=== PATIENT | female | born 1970 | race Caucasian/White ===

== ENCOUNTER 2017-02-05 19:45 | Inpatient (IN) | payer OTHER ==
[~2017-02-05] VITALS: Ht 175.3 cm; Wt 81.2 kg
[~2017-02-05 19:45] MED LIST: ACCUFLORA; B COMPLEX1 CA1 PO; CARISOPRODOL350 MG PO; CILOSTAZOL100 M1 PO; COU2 PO; DIL4 PO; DIPHENOXYLATE PO; DIPHENOXYLATE/2.5 MG PO; FERROUS SULFAT325 M2 PO; FLA500 PO; GATTEX5 MG MR; IRON; JANTOVEN5 MG PO; L20 PO; LAC PO; LIVER AID; LOR PO; LYRICA50 M1 PO; MELOXICAM15 MG PO; METOCLOPRAMIDE5 M1 PO; MYL80 CH; NEU100 PO; PRENATAL PO; PRENATAL1 TA1 PO; PRI20 PO; SODIUM BICARB; SOM350 PO; XARELTO10 M1 PO; XERELTO PO; Z PO; [UNRECOGNIZED DRUG - OTHER]
[2017-02-05 21:20] LABS: BASOPHIL % 0.5 % (0-2); PLATELET COUNT 229 x10^3mcL (130-400)
[2017-02-05 21:34] LABS: ALBUMIN 4.2 g/dL (3.4-5.0); BILIRUBIN TOTAL 0.7 mg/dL (0.20-1.00); CALCIUM 8.7 mg/dL (8.5-10.1); CARBON DIOXIDE 23.6 mmol/L (21-32); CREATININE SERUM 1.6 mg/dL (0.6-1.0); TOTAL PROTEIN, SERUM 7.7 g/dL (6.4-8.2)
[2017-02-05 21:42] LABS: POTASSIUM SERUM 2.9 mmol/L (3.5-5.1)
[2017-02-05] MEDS ORDERED: METOCLOPRAMIDE H5 M1 PO (23:22)
[2017-02-05] MEDS ORDERED: CHANTIX STARTING1 MG PO (23:22)
[2017-02-05] MEDS ORDERED: CILOSTAZOL100 M1 PO (23:24)
[2017-02-05] MEDS ORDERED: GABAPENTIN100 M2 PO (23:24)
[2017-02-05] MEDS ORDERED: RANITIDINE HYD150 M2 PO (23:24)
[2017-02-05] MEDS ORDERED: FUROSEMIDE20 MG PO (23:25)
[2017-02-05] MEDS ORDERED: LYRICA75 M1 PO (23:25)
[2017-02-05] MEDS ORDERED: SPIRONOLACTONE25 MG PO (23:25)
[2017-02-05] MEDS ORDERED: MELOXICAM15 M1 PO (23:25)
[2017-02-05] MEDS ORDERED: BACLOFEN10 MG PO (23:25)
[2017-02-05] MEDS ORDERED: NORCO 10-325 T1 EACH PO (23:26)
[2017-02-06] VITALS (7 sets, daily range): BP systolic 86–118; BP diastolic 51–69
[2017-02-06 01:02] LABS: MAGNESIUM 1.6 mg/dL (1.8-2.4); PHOSPHOROUS 4.1 mg/dL (2.5-4.9)
[2017-02-06 01:03] LABS: CHOLESTEROL/HDL RATIO 2.1; T3 TOTAL 1.09 ng/mL
[2017-02-06 01:09] LABS: FREE T4 0.98 ng/dL (0.76-1.46); FREE THYROXINE INDEX 2.3 ug/dL (1.4-4.5); T4(THYROXINE) 6.6 ug/dL (4.7-13.3)
[2017-02-06 06:20] LABS: CALCIUM 7.9 mg/dL (8.5-10.1); CARBON DIOXIDE 26.1 mmol/L (21-32); CREATININE SERUM 1.3 mg/dL (0.6-1.0); MAGNESIUM 1.5 mg/dL (1.8-2.4); POTASSIUM SERUM 3.6 mmol/L (3.5-5.1)
[2017-02-06 06:32] LABS: BASOPHIL % 0.6 % (0-2); PLATELET COUNT 191 x10^3mcL (130-400); RED CELL DISTRIBUTION WIDTH 13.6 % (11.5-14.5)
[2017-02-06 06:52] LABS: microscopic required? NO
[2017-02-06 07:56] LABS: UA SPECIFIC GRAVITY <=1.005 (1.005-1.035); urine erythrocyte NEGATIVE (NEGATIVE)
[2017-02-06 08:40] LABS: AMPHETAMINE QUAL UR NONE DETECTED (NEG <=1000)
[2017-02-07 05:55] VITALS: BP 94/57
[2017-02-07 07:00] LABS: BASOPHIL % 0.5 % (0-2); PLATELET COUNT 169 x10^3mcL (130-400); RED CELL DISTRIBUTION WIDTH 14.2 % (11.5-14.5)
[2017-02-07 07:32] LABS: CARBON DIOXIDE 21.6 mmol/L (21-32); CHLORIDE SERUM 111 mmol/L (98-107); CREATININE SERUM 0.9 mg/dL (0.6-1.0); GFR1 > 60 mL/min; GLUCOSE SERUM 74 mg/dL (74-106); MAGNESIUM 2.5 mg/dL (1.8-2.4); POTASSIUM SERUM 3.9 mmol/L (3.5-5.1); SODIUM SERUM 143 mmol/L (136-145)
[2017-02-07 09:11] LABS: HCG SERUM QUALITATIVE NEGATIVE; HCG SERUM QUANTITATIVE 6 mIU/mL
[2017-02-07 09:16] VITALS: BP 94/57
[2017-02-07 09:51] VITALS: BP 100/46
[2017-02-07] MEDS ORDERED: COL100 PO (14:02)
== END 2017-02-07 15:53 | disposition home or self-care (01) | DRG 247 ==
LOC: ED 19:45 → DU 22:33 → MU 02-07 07:10
PROVIDERS: Emergency Medicine; ADMIT Family Medicine
DX: K56.60 Unspecified intestinal obstruction (principal); N17.0 Acute kidney failure with tubular necrosis; K91.2 Postsurgical malabsorption, not elsewhere classified; E87.6 Hypokalemia; D64.9 Anemia, unspecified; E83.41 Hypermagnesemia; I10 Essential (primary) hypertension; E02 Subclinical iodine-deficiency hypothyroidism; N20.0 Calculus of kidney; M19.90 Unspecified osteoarthritis, unspecified site; G89.29 Other chronic pain; M54.9 Dorsalgia, unspecified; Z85.41 Personal history of malignant neoplasm of cervix uteri; Z90.710 Acquired absence of both cervix and uterus; Z88.0 Allergy status to penicillin; Z98.84 Bariatric surgery status
CPT/HCPCS: 83880; 84439; J1170; J1885; J2270; J2405; J3475; J7030; Q0092; Q9967

== ENCOUNTER 2018-05-16 17:23 | Inpatient (IN) | payer OTHER ==
[~2018-05-16] VITALS: Ht 175.3 cm; Wt 70.0 kg
[~2018-05-16 17:23] MED LIST changes: +BACLOFEN10 MG PO; +CHANTIX STARTING1 MG PO; +COL100 PO; +FUROSEMIDE20 MG PO; +GABAPENTIN100 M2 PO; +LYRICA75 M1 PO; +MELOXICAM15 M1 PO; +METOCLOPRAMIDE H5 M1 PO; +NORCO 10-325 T1 EACH PO; +RANITIDINE HYD150 M2 PO; +SPIRONOLACTONE25 MG PO
[2018-05-16 17:28] VITALS: Ht 175.3 cm; Wt 70.0 kg
[2018-05-16 18:50] LABS: BASOPHIL % 0.9 % (0-2); PLATELET COUNT 157 x10^3mcL (130-400)
[2018-05-16 19:00] LABS: CALCIUM 8.3 mg/dL (8.5-10.1); CARBON DIOXIDE 19.4 mmol/L (21-32); CREATININE SERUM 1.2 mg/dL (0.6-1.0); POTASSIUM SERUM 3.8 mmol/L (3.5-5.1)
[2018-05-16 19:04] LABS: BILIRUBIN TOTAL 0.49 mg/dL (0.20-1.00); MAGNESIUM 1.8 mg/dL (1.8-2.4); TOTAL PROTEIN, SERUM 7.3 g/dL (6.4-8.2)
[2018-05-16 19:10] LABS: RED CELL DISTRIBUTION WIDTH 15.1 % (11.5-14.5)
[2018-05-16 22:59] LABS: PHOSPHOROUS 3.9 mg/dL (2.5-4.9)
[2018-05-16 23:00] LABS: microscopic required? NO
[2018-05-16] MEDS ORDERED: LYRICA75 M1 PO (23:07)
[2018-05-16] MEDS ORDERED: RIZATRIPTAN BEN10 MG PO (23:08)
[2018-05-16 23:22] LABS: urine erythrocyte NEGATIVE (NEGATIVE)
[2018-05-17 00:03] VITALS: BP 104/66; BP 110/64
[2018-05-17 00:17] VITALS: BP 104/66
[2018-05-17 00:21] LABS: AMPHETAMINE QUAL UR NONE DETECTED (See below)
[2018-05-17 06:03] VITALS: BP 98/59
[2018-05-17 07:12] LABS: CARBON DIOXIDE 21.7 mmol/L (21-32); CREATININE SERUM 1.2 mg/dL (0.6-1.0); MAGNESIUM 1.6 mg/dL (1.8-2.4); PHOSPHOROUS 3.4 mg/dL (2.5-4.9); POTASSIUM SERUM 3.8 mmol/L (3.5-5.1)
[2018-05-17 07:13] LABS: BASOPHIL % 0.8 % (0-2)
[2018-05-17 08:12] LABS: PLATELET COUNT 129 x10^3mcL (130-400); RED CELL DISTRIBUTION WIDTH 14.8 % (11.5-14.5)
[2018-05-17 09:24] VITALS: BP 92/50
[2018-05-17 17:27] VITALS: BP 114/68
[2018-05-17 21:13] VITALS: BP 105/63
[2018-05-18 05:12] VITALS: BP 99/53
[2018-05-18 07:27] LABS: CALCIUM 8.4 mg/dL (8.5-10.1); CARBON DIOXIDE 21.9 mmol/L (21-32); CHLORIDE SERUM 111 mmol/L (98-107); GFR1 > 60 mL/min; GLUCOSE SERUM 87 mg/dL (74-106); MAGNESIUM 1.8 mg/dL (1.8-2.4); PHOSPHOROUS 3.1 mg/dL (2.5-4.9); POTASSIUM SERUM 3.7 mmol/L (3.5-5.1); SODIUM SERUM 143 mmol/L (136-145)
[2018-05-18 08:40] LABS: BASOPHIL % 0.8 % (0-2); PLATELET COUNT 152 x10^3mcL (130-400); RED CELL DISTRIBUTION WIDTH 14.9 % (11.5-14.5)
[2018-05-18 08:47] VITALS: BP 111/69
[2018-05-18 11:27] VITALS: BP 111/69
== END 2018-05-18 12:52 | disposition home or self-care (01) | DRG 247 ==
LOC: ED 17:23 → MU 22:29
PROVIDERS: Emergency Medicine; ADMIT Family Medicine
DX: K56.600 Partial intestinal obstruction, unspecified as to cause (principal); N17.0 Acute kidney failure with tubular necrosis; F32.9 Major depressive disorder, single episode, unspecified; F41.9 Anxiety disorder, unspecified; D53.9 Nutritional anemia, unspecified; E83.42 Hypomagnesemia; E83.51 Hypocalcemia; Z85.41 Personal history of malignant neoplasm of cervix uteri; Z90.710 Acquired absence of both cervix and uterus; Z88.0 Allergy status to penicillin; Z83.3 Family history of diabetes mellitus; Z82.49 Family history of ischemic heart disease and other diseases of the circulatory system; Z80.9 Family history of malignant neoplasm, unspecified; Z87.891 Personal history of nicotine dependence
CPT/HCPCS: J1200; J1885; J2765; J3010; J7030; J8597; Q0092; Q9967

== ENCOUNTER 2020-04-27 20:55 | Emergency (ER) | payer OTHER ==
[~2020-04-27] VITALS: Ht 175.3 cm; Wt 65.9 kg
[~2020-04-27 20:55] MED LIST changes: +RIZATRIPTAN BEN10 MG PO
[2020-04-27 21:40] VITALS: Ht 175.3 cm; Wt 65.9 kg
[2020-04-27 23:44] LABS: BASOPHIL % 0.8 % (0.2-1.3); PLATELET COUNT 175 x10^3mcL (179-408); RED CELL DISTRIBUTION WIDTH 15.3 % (12.3-17.7)
[2020-04-27 23:45] LABS: rbc morphology (normal/abnorm) NORMAL (NORMAL)
[2020-04-28 00:03] LABS: CALCIUM 8.3 mg/dL (8.5-10.1); CARBON DIOXIDE 17.1 mmol/L (21-32); CREATININE SERUM 1.3 mg/dL (0.6-1.0); POTASSIUM SERUM 4.5 mmol/L (3.5-5.1)
[2020-04-28 00:07] LABS: ALBUMIN 3.2 g/dL (3.4-5.0); BILIRUBIN TOTAL 0.4 mg/dL (0.20-1.00); TOTAL PROTEIN, SERUM 6.5 g/dL (6.4-8.2)
[2020-04-28 01:07] VITALS: BP 107/69
== END 2020-04-28 02:22 | disposition home or self-care (01) ==
LOC: ED 20:55
DX: K56.7 Ileus, unspecified (principal); G43.909 Migraine, unspecified, not intractable, without status migrainosus; Z87.442 Personal history of urinary calculi
CPT/HCPCS: J2270; J3490; J7030